=== PATIENT | male | born 1990 | race Caucasian/White ===

== ENCOUNTER 2016-11-27 02:55 | Inpatient (IN) | payer SELFPAY ==
[~2016-11-27] VITALS: Ht 167.6 cm; Wt 70.5 kg
--- NOTE | ~2016-11-27 | HP ---
PATIENT'S NAME: LÓPEZ [facility]ILA [facility] AGE: 26 Y [address] ROOM: [place] [id number] LOCATION: [facility] ADMIT DATE: 11/27/2016 History & Physical DISCHARGE DATE: FAMILY PHYSICIAN: PHYSICIAN, UNKNOWN ATTENDING PHYSICIAN: NACNY RODRÍGUEZ V DATE OF SERVICE: CHIEF COMPLAINT: Withdrawal. HISTORY OF PRESENT ILLNESS: The patient is a 26-year-old male who was sent to [facility] from [facility] in [place] with alcohol withdrawal. The patient has a longstanding history of alcoholism consuming approximately six 24 ounce of beers a day. He does endorse an early onset of withdrawal with cessation of alcohol as well as prior history of DTs and seizures though. His history is somewhat of a suspect. The patient was sentenced and taken to halfway earlier today for a prior offence where he promptly went into withdrawal and was taken to the hospital in [place]. The patient also admits to methamphetamine use, which he smokes as well as marijuana use. He claims to have not used methamphetamines in a week and his urine tox done in [place] is actually unremarkable. The patient endorses visual hallucinations, nausea, tremors, anxiety, diaphoresis, and in fact appears somewhat uncomfortable. REVIEW OF SYSTEMS: Denies any chest pain, but does admit to palpitations and generalized unsteadiness. All systems have been reviewed and are negative aside from pertinent positives mentioned above. PAST MEDICAL HISTORY: Alcoholism, polysubstance abuse. He denies any other medical problems. SOCIAL HISTORY: As per unfortunate history described in the HPI. FAMILY HISTORY: The patient denies any pertinent family history. CURRENT MEDICATIONS: None. PATIENT'S NAME: LÓPEZ AGUILA [facility] AGE: 26 Y [address] ROOM: [address] [address] LOCATION: [facility] ADMIT DATE: 11/27/2016 History & Physical DISCHARGE DATE: FAMILY PHYSICIAN: PHYSICIAN, UNKNOWN ATTENDING PHYSICIAN: NANCY RODRÍGUEZ V PHYSICAL EXAMINATION: VITAL SIGNS: Blood pressure 149/92, pulse is 73, respirations are 20, satting 99% on room air, and temperature is 98.6. GENERAL: Appears as a well-developed, well-nourished young male with considerable tremor and stuttering speech as well as slightly diaphoretic skin. NEUROLOGIC: Exam is significant for tremor just in his right hand as well as in his lower extremities and aside from that is nonfocal. EYES: Exam shows pupils are equal and reactive to light. SKIN: Exam reveals multiple elevated plaques with erythema and lichenification over his entire body. LUNGS: Clear to auscultation. HEART: Rate is regular. No appreciable murmurs, gallops, or rubs. ABDOMEN: Soft, nontender. : No costovertebral angle tenderness. VASCULAR: A 2+ pedal pulses. MUSCULOSKELETAL: Exam shows no muscle or joint abnormalities. PSYCHIATRIC: Exam is negative for any suicidal or homicidal ideations, but clear for some presence of alcohol withdrawal as per visual hallucinations. LABORATORY DATA: Workup at the outside facility showed an unremarkable EKG and a biochemical profile, which was significant for mildly elevated amylase as well as AST 143, ALT consistent with ongoing alcohol abuse. ASSESSMENT AND PLAN: This is a 26-year-old male who will be admitted with: 1. Alcohol withdrawal. At this point, it appears the patient is in fairly significant amount of withdrawal and we will begin a tapering dose of Librium. We will provide him with p.r.n. pushes of Ativan. We will also monitor him on telemetry. 2. Alcoholism. We will start the patient on a banana bag and monitor his potassium and magnesium. 3. Mild transaminitis. This is clearly related to his alcohol use. We will monitor those indeces. 4. Skin eruption. This could be possibly be psoriasis though some of the lesions do look superinfected. We will consider a Dermatology evaluation. 5. Additional management will depend on clinical course. Time dedicated to this patient encounter is 35 minutes. NANCY RODRÍGUEZ MD PATIENT'S NAME: LÓPEZ AGUILA [facility] AGE: 26 Y [address] ROOM: [address] [address] LOCATION: [facility] ADMIT DATE: 11/27/2016 History & Physical DISCHARGE DATE: FAMILY PHYSICIAN: PHYSICIAN, UNKNOWN ATTENDING PHYSICIAN: NANCY RODRÍGUEZ/[facility] /[id number] D: [id number] T: [id number] HISTORY & PHYSICAL
--- NOTE | 2016-11-27 04:23 | NUR ---
Admission: Pt admitted from [facility]. He was brought in by the senior care due to pt showing signs of detox. VSS on admission pt was tremoring and very weak/ unsteady while ambulating. Pt states he has felt depressed and has not wanted to wake up in the past but denies any sucicdal thoughts at this time. Admits to weekly meth use, every other day Marajuana use, and is daily drinker. " wake up and drink until night". Hx of over dose and abusing ritalin and cough syrup. pt has open spots through out his body states " i have Impateigo". 2 MG of atvan given on admission. tele. regular diet. bananna bag x1. started on lithium. will be on contact precautions ad emeterio per .
[2016-11-27 05:07] LABS: ALBUMIN 3.5 gm/dL (3.5-5.0); ALK PHOS 64 IU/L (33-138); ALT 70 IU/L (12-78); ANION GAP 14.4 (10.0-19.0); AST 123 IU/L (10-40); BLOOD UREA NITROGEN 5 mg/dL (6-24); CALCIUM 8.4 mg/dL (8.5-10.5); CHLORIDE 102 mMol/L (96-110); CO2 25 mMol/L (22-32); CREATININE 0.6 mg/dL (0.6-1.3); ESTIMATED GFR (MDRD EQUATION) > 60; MAGNESIUM 1.6 mg/dL (1.8-2.6); PHOSPHORUS 2.3 mg/dL (2.5-4.9); POTASSIUM 3.4 mMol/L (3.7-5.1); SODIUM 138 mMol/L (135-145); TOTAL BILIRUBIN 0.6 mg/dL (0.0-1.5); TOTAL PROTEIN 7.1 g/dL (6.0-8.4)
--- NOTE | 2016-11-27 12:15 | NUR ---
Reviewed Ruel' chart and talked with . There was paperwork on the chart indicating that Morris was under the care of [facility]' dept. and had been there prior to coming into [facility]. I phoned [facility], , talked with Emely as the field adjuster was out of the office. Emely tells me that Morris is indeed in custody with them and once he is medically cleared from our standpoint, he would go back to them. She says an officer would come and pick him up to transport him back to them in [place]. I let her know that we anticipate he will be ready to go tomorrow, but told her I would call them tomorrow morning to confirm this and we would go from there. She was fine with this and states she will update the [employer] to this as well when he gets back in the office. After my visit with Emely, I went to talk with Morris. Introduced myself and CM role. He was sitting in his bed getting ready to order lunch when I entered, was in a good mood. Talked with him about dismissal plans and he confirmed with me that he was in assisted in [place], [place] for a short time and then was sent to us as he was detoxing. He says he still has "a while in assisted" before he will be able to go home again. He denies any questions about going back to assisted. States he won't need any resources right now since assisted is his dismissal plan from us. I did help him order some lunch for the day. He denied any other questions, needs or concerns. CM to continue to follow and assist. Plan dismissal tomorrow back to [facility] in [place], [place] via [employer] transport.
--- NOTE | 2016-11-27 18:03 | NUR ---
Patient is alert and oriented, VSS, on room air. 1 assist with gait belt. He is unsteady on his feet still, sways and tilts backwards. IV to R) forearm has a banana bag and potassium phosphate infusing, pharmacist says they are compatible. He has a rash throughout his body that the doctors think is psoriasis but have a dermatology consult. Isolation until skin rash/lesions are known. Tele with no calls. Librium pathway. Q4 VS. Will be released back to [facility] when discharged.
--- NOTE | 2016-11-28 04:45 | NUR ---
Significant Event: Alert/oriented x3. Fine tremor bilateral hands. Gait has improved throughout the shift, keeps gait belt on. IV saline locked in right antecubital. Librium 50 mg Q6H, next due at 1100; decreased from 100 mg to 50 mg per order. Next banana bag due at 0900. No complaints of pain. VSS. Contact isolation due to open spots throughout his body, patient says it's "impetigo." Denies suicidal ideations during the shift. Admits to weekly meth use, marijuana use every other day, ETOH daily. Hx overdose and abusing Ritalin and cough syrup. Came from [facility] before that; will return to [facility] upon dismissal. Telemetry - they called twice- once a lead was disconnected, another time heart rate in 150s (pt was walking back from bathroom at that time). Follow up:
[2016-11-28 05:41] LABS: ALBUMIN 3.4 gm/dL (3.5-5.0); ALK PHOS 65 IU/L (33-138); ALT 82 IU/L (12-78); ANION GAP 10.3 (10.0-19.0); AST 138 IU/L (10-40); BLOOD UREA NITROGEN 4 mg/dL (6-24); CALCIUM 8.5 mg/dL (8.5-10.5); CHLORIDE 106 mMol/L (96-110); CO2 26 mMol/L (22-32); CREATININE 0.7 mg/dL (0.6-1.3); ESTIMATED GFR (MDRD EQUATION) > 60; MAGNESIUM 2.2 mg/dL (1.8-2.6); PHOSPHORUS 3.4 mg/dL (2.5-4.9); POTASSIUM 3.3 mMol/L (3.7-5.1); SODIUM 139 mMol/L (135-145); TOTAL BILIRUBIN 0.5 mg/dL (0.0-1.5)
--- NOTE | 2016-11-28 10:26 | NUR ---
0930 Went up to [facility] floor, talked with Basia Kwong. She tell me that she is waiting on to round adn see Morris but from what she can tell, Handy should be cleared for dimissal today. She did have a question about him being seen by a dermetologist before he left town today. She has talked with and he would be willing to see Morris between [id number] today if the staff from the [facility] would be willing to take him from our facility to the dermetologist office. [facility], talked with tray Majano #[id number], he states to me that, "We have already had that rash checked out before and honestly he has already cost me a lot of money so we will just keep using the cream that we have and call it good." Let him know that this was fine, shared it with Basia as well, she was ok with the plan to not have him seen by a dermetologist. Told Sheriff Simon to have his staff here at 1300 to filler picker Morris. states he will be here to pick him up then. Basia was going to inform he needed to round before 1300 to make sure the Morris was cleared to go back to [facility] today. No other questions, needs or concerns. CM to continue to follow and assist.
[2016-11-28] MEDS ORDERED: LIBRIUM25 MG PO ×3 (11:29→11:31)
[2016-11-28] MEDS ORDERED: THERAGRAN-M1 TAB PO (11:32)
[2016-11-28] MEDS ORDERED: FOLIC ACID1 MG PO (11:32)
[2016-11-28] MEDS ORDERED: THIAMINE HCL100 MG PO (11:32)
[2016-11-28] MEDS ORDERED: CLOBETASOL EMO100 GM TOP (11:33)
--- NOTE | 2016-11-28 12:45 | NUR ---
Significant Event: Patient up ad emeterio in room. Denies pain and states he feels better than when he came in. Ate a late breakfast/lunch and tolerated well. Dr. Reynoso in and said patient could be discharged. Dismissal orders processed by Dipika Lee and reviewed with patient. Vitals assessed and normal and patient dismissed back to [facility] at 1245. Officer to transport.
--- NOTE | 2016-11-28 15:35 | NUR ---
DISCHARGE: Pt. was educated on new medications, alcohol withdrawal, and alcohol cessation. Transfer packet sent with law officer. Iv and tele d/c'd by patient. Left with all belongings and prescriptions. Verbalized understanding of instruction, no questions or concerns. Left at 1245 with officer to [facility].
== END 2016-11-28 12:45 | disposition disaster alternative care site (69) | DRG 897 ==
LOC: GMSU 02:55
PROVIDERS: Hospitalist; ADMIT Internal Medicine
PROC: HZ2ZZZZ Detoxification Services for Substance Abuse Treatment (ICD-10-PCS; principal; 2016-11-27)
DX: F10.239 Alcohol dependence with withdrawal, unspecified (principal); F10.221 Alcohol dependence with intoxication delirium; Y90.9 Presence of alcohol in blood, level not specified; L40.9 Psoriasis, unspecified; R74.0 Nonspecific elevation of levels of transaminase and lactic acid dehydrogenase [LDH]; F19.90 Other psychoactive substance use, unspecified, uncomplicated
CPT/HCPCS: J2060; J3411; J3475; J7030; J7050